=== PATIENT | female | born 1975 | race African-American/Black ===

== ENCOUNTER 2020-10-06 13:26 | Inpatient (IN) | payer OTHER ==
[2020-10-06 15:24] VITALS: BMI 21.4
[2020-10-06] MEDS ORDERED: IBUPROFEN 400 MG TABLET (FP) PO PRN (18:16)
[2020-10-06] MEDS ORDERED: BISMUTH SUBSALICYLATE 524 MG/30 ML PO PRN (18:16)
[2020-10-06] MEDS ORDERED: cloNIDine HCL 0.1 MG TABLET PO PRN (18:16)
[2020-10-06] MEDS ORDERED: MENTHOL/PHENOL 1 EACH UD MM PRN (18:16)
[2020-10-06] MEDS ORDERED: MAG HYDROX/AL HYDROX/SIMETH 30 ML UNIT-DOSE CUP PO PRN (18:16)
[2020-10-06] MEDS ORDERED: METHADONE HCL 10 MG TABLET (FOR DETOX USE ONLY) PO ONE (18:16)
[2020-10-06] MEDS ORDERED: MAGNESIUM CITRATE 300 ML BOTTLE PO PRN (18:16)
[2020-10-06] MEDS ORDERED: ONDANSETRON *ODT* 4 MG TABLET SL PRN (18:16)
[2020-10-06] MEDS ORDERED: MAGNESIUM HYDROX 2400MG/30ML ORAL SUSPENSION 30 ML CUP PO PRN (18:16)
[2020-10-06] MEDS ORDERED: ACETAMINOPHEN 325 MG TABLET (FP) PO PRN (18:16)
[2020-10-06] MEDS ORDERED: NICOTINE POLACRILEX 2 MG GUM BUC PRN (18:16)
[2020-10-06] MEDS ORDERED: METHADONE HCL 10 MG TABLET (FOR DETOX USE ONLY) ONE (22:48)
[2020-10-06] MEDS: NICOTINE 21 MG/24 HOURS TOPICAL PATCH TD SCH (22:50)
[2020-10-06] MEDS: PRENATAL VITAMINS W/ FOLIC ACID TABLET (FP) PO SCH (22:50)
[2020-10-06] MEDS: MELATONIN 5 MG TABLETS PO SCH (22:50)
[2020-10-06] MEDS: hydrOXYzine PAMOATE 25 MG CAPSULE (FP) PO SCH (22:51)
[2020-10-06] MEDS: THIAMINE HCL 100 MG TABLET (FP) PO SCH (22:51)
[2020-10-07] MEDS: hydrOXYzine PAMOATE 25 MG CAPSULE (FP) PO SCH ×5 (06:07→23:05)
[2020-10-07] MEDS ORDERED: METHADONE HCL 10 MG TABLET (FOR DETOX USE ONLY) ONE (09:25)
[2020-10-07] MEDS ORDERED: METHADONE HCL 5 MG TABLET (FOR DETOX USE ONLY) ONE (09:25)
[2020-10-07] MEDS ORDERED: METHADONE (DETOX) 20 MG, METHADONE (DETOX) 5 MG PO ONE (10:00)
[2020-10-07] MEDS: ACETAMINOPHEN 325 MG TABLET (FP) PO PRN (10:02)
[2020-10-07] MEDS: NICOTINE 21 MG/24 HOURS TOPICAL PATCH TD SCH (10:04)
[2020-10-07] MEDS: PRENATAL VITAMINS W/ FOLIC ACID TABLET (FP) PO SCH (10:04)
[2020-10-07] MEDS: METHOCARBAMOL 500 MG TABLET PO PRN (10:27)
[2020-10-07] MEDS ORDERED: PNEUMOC 13-VAL CONJ-DIP CRM/PF 0.5 ML DISP.SYRIN IM ONE (12:00)
[2020-10-07] MEDS ORDERED: FLU VACCINE (FLULAVAL) PF 60 MCG/0.5 ML SYRINGE 2020-2021 IM ONE (12:00)
[2020-10-07] MEDS ORDERED: PNEUMOCOCCAL 23 VACCINE 0.5 ML VIAL IM ONE (12:00)
[2020-10-07 12:03] LABS: HEMATOCRIT 37.9 % (32.4-45.2); HEMOGLOBIN 12.9 GM/dL (10.7-15.3); MCH 31.8 pg (25.7-33.7); MEAN CELL VOLUME 93.6 fl (80-96); MEAN PLT VOLUME 9.5 fl (7.5-11.1); PLATELET COUNT 248 K/MM3 (134-434); RBC 4.05 M/mm3 (3.60-5.2); RDW 14.3 % (11.6-15.6); WHITE BLOOD COUNT 5.5 K/mm3 (4.0-10.0)
[2020-10-07 12:40] LABS: ALBUMIN 2.9 g/dl (3.4-5.0); BLOOD UREA NITROGEN 15.1 mg/dL (7-18)
[2020-10-07 12:42] LABS: BILIRUBIN,TOTAL 0.3 mg/dL (0.2-1); CALCIUM 8.6 mg/dL (8.5-10.1); TOT PROT 6.4 g/dl (6.4-8.2)
[2020-10-07 12:43] LABS: CREATININE 0.9 mg/dL (0.55-1.3)
[2020-10-07] MEDS: THIAMINE HCL 100 MG TABLET (FP) PO SCH (23:05)
[2020-10-07] MEDS: MELATONIN 5 MG TABLETS PO SCH (23:05)
[2020-10-08] MEDS: hydrOXYzine PAMOATE 25 MG CAPSULE (FP) PO SCH ×5 (05:48→22:29)
[2020-10-08] MEDS ORDERED: METHADONE HCL 10 MG TABLET (FOR DETOX USE ONLY) PO ONE (10:00)
[2020-10-08] MEDS: PRENATAL VITAMINS W/ FOLIC ACID TABLET (FP) PO SCH (10:35)
[2020-10-08] MEDS: NICOTINE 21 MG/24 HOURS TOPICAL PATCH TD SCH (10:37)
[2020-10-08] MEDS: THIAMINE HCL 100 MG TABLET (FP) PO SCH (22:29)
[2020-10-08] MEDS: MELATONIN 5 MG TABLETS PO SCH (22:29)
[2020-10-09] MEDS: hydrOXYzine PAMOATE 25 MG CAPSULE (FP) PO SCH ×5 (05:09→22:31)
[2020-10-09] MEDS ORDERED: METHADONE HCL 10 MG TABLET (FOR DETOX USE ONLY) ONE (09:00)
[2020-10-09] MEDS ORDERED: METHADONE HCL 5 MG TABLET (FOR DETOX USE ONLY) ONE (09:01)
[2020-10-09] MEDS ORDERED: METHADONE (DETOX) 10 MG, METHADONE (DETOX) 5 MG PO ONE (10:00)
[2020-10-09] MEDS: NICOTINE 21 MG/24 HOURS TOPICAL PATCH TD SCH (10:25)
[2020-10-09] MEDS: PRENATAL VITAMINS W/ FOLIC ACID TABLET (FP) PO SCH (10:26)
[2020-10-09] MEDS: THIAMINE HCL 100 MG TABLET (FP) PO SCH (22:31)
[2020-10-09] MEDS: MELATONIN 5 MG TABLETS PO SCH (22:31)
[2020-10-10] MEDS: hydrOXYzine PAMOATE 25 MG CAPSULE (FP) PO SCH ×4 (07:26→22:33)
[2020-10-10] MEDS: PRENATAL VITAMINS W/ FOLIC ACID TABLET (FP) PO SCH (09:27)
[2020-10-10] MEDS: NICOTINE 21 MG/24 HOURS TOPICAL PATCH TD SCH (09:28)
[2020-10-10] MEDS: METHOCARBAMOL 500 MG TABLET PO PRN ×2 (09:29→22:33)
[2020-10-10] MEDS ORDERED: METHADONE HCL 10 MG TABLET (FOR DETOX USE ONLY) PO ONE (10:00)
[2020-10-10] MEDS: MELATONIN 5 MG TABLETS PO SCH (22:33)
[2020-10-10] MEDS: THIAMINE HCL 100 MG TABLET (FP) PO SCH (22:33)
[2020-10-11] MEDS ORDERED: METHADONE HCL 5 MG TABLET (FOR DETOX USE ONLY) PO ONE (06:00)
[2020-10-11] MEDS: hydrOXYzine PAMOATE 25 MG CAPSULE (FP) PO SCH ×2 (06:04→09:11)
[2020-10-11] MEDS: ACETAMINOPHEN 325 MG TABLET (FP) PO PRN (06:05)
[2020-10-11 09:08] VITALS: BP 121/82; PULSE 68; TEMP 97.6
[2020-10-11] MEDS: PRENATAL VITAMINS W/ FOLIC ACID TABLET (FP) PO SCH (09:11)
[2020-10-11] MEDS: NICOTINE 21 MG/24 HOURS TOPICAL PATCH TD SCH (09:11)
== END 2020-10-11 10:13 | disposition other institution (70) | DRG 773 ==
LOC: YASAS 13:26 → Y3N 20:09
PROVIDERS: ADMIT Allergy & Immunology; ATTEND Allergy & Immunology
PROC: HZ2ZZZZ Detoxification Services for Substance Abuse Treatment (ICD-10-PCS; principal; 2020-10-06)
DX: F11.23 Opioid dependence with withdrawal (principal); F10.20 Alcohol dependence, uncomplicated; F14.20 Cocaine dependence, uncomplicated; F16.20 Hallucinogen dependence, uncomplicated; F17.210 Nicotine dependence, cigarettes, uncomplicated; F31.9 Bipolar disorder, unspecified; F43.10 Post-traumatic stress disorder, unspecified; I10 Essential (primary) hypertension; E89.0 Postprocedural hypothyroidism; Z62.810 Personal history of physical and sexual abuse in childhood; Z91.5 Personal history of self-harm; Z91.018 Allergy to other foods
CPT/HCPCS: 36415; 80053; 81025; 85027; 86780; 90732; C9803; G0008; G0009; Q2036; U0003

== ENCOUNTER 2022-04-10 19:19 | Observation (INO) | payer OTHER ==
[2022-04-10 19:30] VITALS: BMI 22.3
[2022-04-10] MEDS ORDERED: ACETAMINOPHEN 1000 MG/100 ML BAG IVPB ONE (19:44)
[2022-04-10 20:28] LABS: BASO % 0.7 % (0-2.0); EOS % 2.9 % (0-4.5); LYMPH % 41.1 % (8-40); MCH 31.7 pg (25.7-33.7); MCHC 34.3 g/dl (32.0-36.0); MEAN CELL VOLUME 92.4 fl (80-96); MEAN PLT VOLUME 8.2 fl (7.5-11.1); MONO % 8.3 % (3.8-10.2); PLATELET COUNT 243 10^3/uL (134-434); RBC 4.12 M/mm3 (3.60-5.2); RDW 13.9 % (11.6-15.6); WHITE BLOOD COUNT 5.1 K/mm3 (4.0-10.0)
[2022-04-10] MEDS ORDERED: ONDANSETRON *ODT* 4 MG TABLET SL ONE (20:46)
[2022-04-10 20:54] LABS: CHLORIDE 108 mmol/L (98-107); SODIUM 143 mmol/L (136-145)
[2022-04-10 20:57] LABS: ALBUMIN 3.2 g/dl (3.4-5.0); ANION GAP 5 MMOL/L (8-16); BLOOD UREA NITROGEN 21.3 mg/dL (7-18); CALCIUM 8.7 mg/dL (8.5-10.1); CO2 30 mmol/L (21-32); GLUCOSE,RANDOM 136 mg/dL (74-106); LIPASE 91 U/L (73-393)
[2022-04-10 21:00] LABS: CREATININE 0.9 mg/dL (0.55-1.3); SGOT/AST 21 U/L (15-37); SGPT/ALT 21 U/L (13-61)
[2022-04-10 21:02] LABS: BILIRUBIN,TOTAL 0.2 mg/dL (0.2-1); TOT PROT 7.2 g/dl (6.4-8.2)
[2022-04-10 21:04] LABS: ALK PHOS 58 U/L (45-117)
[2022-04-10] MEDS ORDERED: ACETAMINOPHEN INJECTION 100 ML IVPB ONE (21:56)
[2022-04-11] MEDS ORDERED: BISACODYL 5 MG TABLET.DR (FP) PO ONE (07:29)
[2022-04-11] MEDS ORDERED: ENOXAPARIN NA (PORCINE) 40 MG/0.4 ML DISP.SYRIN SQ SCH (10:00)
[2022-04-11] MEDS ORDERED: POLYETHYLENE GLYCOL (HEALTHYLAX) 3350 17 GM PACKET PO SCH (10:00)
[2022-04-11] MEDS ORDERED: ENOXAPARIN NA (PORCINE) 40 MG/0.4 ML DISP.SYRIN SQ ONE (10:34)
[2022-04-11] MEDS ORDERED: POLYETHYLENE GLYCOL (HEALTHYLAX) 3350 17 GM PACKET ONE (10:34)
[2022-04-11] MEDS ORDERED: methaDONE HCL 10 MG TABLET PO ONE (12:14)
[2022-04-11] MEDS ORDERED: cloNIDine HCL 0.1 MG TABLET PO PRN (12:14)
[2022-04-11] MEDS ORDERED: methaDONE HCL 10 MG TABLET ONE (14:37)
[2022-04-11 17:04] VITALS: BP 121/81; PULSE 61; RESP 20; TEMP 97.6
[2022-04-13] MEDS ORDERED: methaDONE HCL 10 MG TABLET PO ONE (10:00)
[2022-04-15] MEDS ORDERED: methaDONE HCL 10 MG TABLET PO ONE (10:00)
== END 2022-04-11 17:38 | disposition other institution (70) ==
LOC: JER 19:19 → JERBED 23:11 → UNDODISOB 04-11 16:56 → J4W 04-12 05:13 → JERBED 04-12 05:13
PROVIDERS: ADMIT Internal Medicine; ATTEND Nurse Practitioner Acute Care
PROC: 3E033NZ Introduction of Analgesics, Hypnotics, Sedatives into Peripheral Vein, Percutaneous Approach (ICD-10-PCS; principal; 2022-04-10)
PROC: 3E023GC Introduction of Other Therapeutic Substance into Muscle, Percutaneous Approach (ICD-10-PCS; 2022-04-10)
DX: T40.1X4A Poisoning by heroin, undetermined, initial encounter (principal); F19.10 Other psychoactive substance abuse, uncomplicated; I95.9 Hypotension, unspecified; F14.10 Cocaine abuse, uncomplicated; Z91.018 Allergy to other foods
CPT/HCPCS: 36415; 71045-TC-FY; 74177-TC; 80053; 80307; 83605; 83690; 84484; 84703; 85025; 93005; 93010; 96374; 96375; 99285-25; C9803-CS; G0378; Q9967; U0003; U0005

== ENCOUNTER 2022-04-11 17:28 | Inpatient (IN) | payer OTHER ==
[2022-04-11 18:06] VITALS: BMI 21.4
[2022-04-11] MEDS ORDERED: P-EPHED 60MG/TRIPROLIDI 2.5MG TABLET PO PRN (18:53)
[2022-04-11] MEDS ORDERED: MAGNESIUM CITRATE 300 ML BOTTLE PO PRN (18:53)
[2022-04-11] MEDS ORDERED: MAGNESIUM HYDROX 2400MG/30ML ORAL SUSPENSION 30 ML CUP PO PRN (18:53)
[2022-04-11] MEDS ORDERED: NALOXONE HCL (KLOXXADO) 8 MG SPRAY NS PRN (18:53)
[2022-04-11] MEDS ORDERED: BISMUTH SUBSALICYLATE 524 MG/30 ML PO PRN (18:53)
[2022-04-11] MEDS ORDERED: BENZOCAINE/MENTHOL (CHLORASEPTIC ) LOZENGE MM PRN (18:53)
[2022-04-11] MEDS ORDERED: METHOCARBAMOL 500 MG TABLET PO PRN (18:53)
[2022-04-11] MEDS ORDERED: MAG HYDROX/AL HYDROX/SIMETH 30 ML UNIT-DOSE CUP PO PRN (18:53)
[2022-04-11] MEDS ORDERED: ACETAMINOPHEN 325 MG TABLET (FP) PO PRN (18:53)
[2022-04-11] MEDS ORDERED: DICYCLOMINE HCL 10 MG CAPSULE PO PRN (18:53)
[2022-04-11] MEDS ORDERED: guaiFENesin 200 MG/10 ML 10 ML UNIT-DOSE CUPS PO PRN (18:53)
[2022-04-11] MEDS ORDERED: LOPERAMIDE HCL 2 MG CAPSULE PO PRN (18:53)
[2022-04-11] MEDS ORDERED: ONDANSETRON *ODT* 4 MG TABLET SL PRN (18:53)
[2022-04-11] MEDS ORDERED: cloNIDine HCL 0.1 MG TABLET PO PRN (18:56)
[2022-04-11] MEDS: THIAMINE HCL 100 MG TABLET (FP) PO SCH (22:09)
[2022-04-12] MEDS ORDERED: methaDONE HCL 10 MG TABLET PO ONE (11:26)
[2022-04-12] MEDS: PRENATAL VITAMINS W/ FOLIC ACID TABLET (FP) PO SCH (11:55)
[2022-04-12] MEDS: ACETAMINOPHEN 325 MG TABLET (FP) PO PRN (21:55)
[2022-04-12] MEDS: THIAMINE HCL 100 MG TABLET (FP) PO SCH (22:11)
[2022-04-13] MEDS: methaDONE HCL 10 MG TABLET PO SCH (07:03)
[2022-04-13] MEDS ORDERED: methaDONE HCL 10 MG TABLET (FOR DETOX USE ONLY) PO ONE (10:00)
[2022-04-13] MEDS: PRENATAL VITAMINS W/ FOLIC ACID TABLET (FP) PO SCH (10:33)
[2022-04-13] MEDS: ACETAMINOPHEN 325 MG TABLET (FP) PO PRN (10:34)
[2022-04-13] MEDS ORDERED: cloNIDine HCL 0.1 MG TABLET PO PRN (11:59)
[2022-04-13] MEDS: hydrOXYzine PAMOATE 25 MG CAPSULE (FP) PO PRN (21:16)
[2022-04-13] MEDS: THIAMINE HCL 100 MG TABLET (FP) PO SCH (21:16)
[2022-04-13] MEDS: MELATONIN 5 MG TABLETS PO PRN (21:17)
[2022-04-14] MEDS: methaDONE HCL 10 MG TABLET PO SCH (07:04)
[2022-04-14] MEDS: PRENATAL VITAMINS W/ FOLIC ACID TABLET (FP) PO SCH (10:29)
[2022-04-14] MEDS: hydrOXYzine PAMOATE 25 MG CAPSULE (FP) PO PRN (21:33)
[2022-04-14] MEDS: THIAMINE HCL 100 MG TABLET (FP) PO SCH (21:33)
[2022-04-15] MEDS: methaDONE HCL 10 MG TABLET PO SCH (07:09)
[2022-04-15] MEDS ORDERED: methaDONE HCL 10 MG TABLET (FOR DETOX USE ONLY) PO ONE (10:00)
[2022-04-15] MEDS: PRENATAL VITAMINS W/ FOLIC ACID TABLET (FP) PO SCH (10:50)
[2022-04-15] MEDS: ACETAMINOPHEN 325 MG TABLET (FP) PO PRN (10:51)
[2022-04-15] MEDS: MELATONIN 5 MG TABLETS PO PRN (21:22)
[2022-04-15] MEDS: hydrOXYzine PAMOATE 25 MG CAPSULE (FP) PO PRN (21:22)
[2022-04-15] MEDS: THIAMINE HCL 100 MG TABLET (FP) PO SCH (21:23)
[2022-04-16] MEDS: methaDONE HCL 10 MG TABLET PO SCH (07:16)
[2022-04-16] MEDS: PRENATAL VITAMINS W/ FOLIC ACID TABLET (FP) PO SCH (10:31)
[2022-04-16] MEDS: hydrOXYzine PAMOATE 25 MG CAPSULE (FP) PO PRN (10:31)
[2022-04-16] MEDS: THIAMINE HCL 100 MG TABLET (FP) PO SCH (21:41)
[2022-04-16] MEDS: MELATONIN 5 MG TABLETS PO PRN (21:41)
[2022-04-17] MEDS: methaDONE HCL 10 MG TABLET PO SCH (07:06)
[2022-04-17] MEDS: PRENATAL VITAMINS W/ FOLIC ACID TABLET (FP) PO SCH (10:35)
[2022-04-17] MEDS: MELATONIN 5 MG TABLETS PO PRN (21:18)
[2022-04-17] MEDS: THIAMINE HCL 100 MG TABLET (FP) PO SCH (21:18)
[2022-04-18] MEDS: methaDONE HCL 10 MG TABLET PO SCH (06:43)
[2022-04-18] MEDS: PRENATAL VITAMINS W/ FOLIC ACID TABLET (FP) PO SCH (10:45)
[2022-04-18] MEDS: ACETAMINOPHEN 325 MG TABLET (FP) PO PRN (10:46)
[2022-04-18] MEDS: MELATONIN 5 MG TABLETS PO PRN (22:10)
[2022-04-18] MEDS: THIAMINE HCL 100 MG TABLET (FP) PO SCH (22:10)
[2022-04-19] MEDS: methaDONE HCL 10 MG TABLET PO SCH (06:57)
[2022-04-19] MEDS: IBUPROFEN 400 MG TABLET (FP) PO PRN (10:54)
[2022-04-19] MEDS: PRENATAL VITAMINS W/ FOLIC ACID TABLET (FP) PO SCH (10:54)
[2022-04-19] MEDS ORDERED: valACYclovir HCL 1000 MG TABLET PO ONE (13:32)
[2022-04-19] MEDS ORDERED: valACYclovir HCL 500 MG TABLET (FP) PO ONE (13:45)
[2022-04-19] MEDS: BENZOCAINE 20 % GEL TUBE MM SCH ×2 (14:22→23:03)
[2022-04-19] MEDS: MELATONIN 5 MG TABLETS PO PRN (21:37)
[2022-04-19] MEDS: THIAMINE HCL 100 MG TABLET (FP) PO SCH (21:37)
[2022-04-20] MEDS: valACYclovir HCL 500 MG TABLET (FP) PO SCH ×3 (00:07→21:28)
[2022-04-20] MEDS: BENZOCAINE 20 % GEL TUBE MM SCH ×4 (06:31→19:07)
[2022-04-20] MEDS: methaDONE HCL 10 MG TABLET PO SCH (06:53)
[2022-04-20] MEDS: PRENATAL VITAMINS W/ FOLIC ACID TABLET (FP) PO SCH (11:19)
[2022-04-20] MEDS: METHOCARBAMOL 500 MG TABLET PO PRN ×2 (11:22→21:26)
[2022-04-20] MEDS: THIAMINE HCL 100 MG TABLET (FP) PO SCH (21:26)
[2022-04-20] MEDS: MELATONIN 5 MG TABLETS PO PRN (21:27)
[2022-04-21] MEDS: BENZOCAINE 20 % GEL TUBE MM SCH ×4 (02:24→19:35)
[2022-04-21] MEDS ORDERED: diphenhydrAMINE HCL 25 MG CAPSULE (FP) PO ONE (02:25)
[2022-04-21] MEDS: methaDONE HCL 10 MG TABLET PO SCH (07:02)
[2022-04-21] MEDS: PRENATAL VITAMINS W/ FOLIC ACID TABLET (FP) PO SCH (10:52)
[2022-04-21] MEDS: valACYclovir HCL 500 MG TABLET (FP) PO SCH ×2 (10:52→22:04)
[2022-04-21] MEDS: IBUPROFEN 400 MG TABLET (FP) PO PRN (10:54)
[2022-04-21] MEDS: THIAMINE HCL 100 MG TABLET (FP) PO SCH (22:03)
[2022-04-21] MEDS: MELATONIN 5 MG TABLETS PO PRN (22:04)
[2022-04-21] MEDS: ERYTHROMYCIN 0.5% OPHTHALMIC OINTMENT 3.5 GM TUBE OS SCH (22:05)
[2022-04-22] MEDS: BENZOCAINE 20 % GEL TUBE MM SCH ×4 (01:52→21:37)
[2022-04-22] MEDS: methaDONE HCL 10 MG TABLET PO SCH (07:05)
[2022-04-22] MEDS: PRENATAL VITAMINS W/ FOLIC ACID TABLET (FP) PO SCH (10:44)
[2022-04-22] MEDS: valACYclovir HCL 500 MG TABLET (FP) PO SCH ×2 (10:45→22:13)
[2022-04-22] MEDS: IBUPROFEN 400 MG TABLET (FP) PO PRN (10:45)
[2022-04-22] MEDS: ERYTHROMYCIN 0.5% OPHTHALMIC OINTMENT 3.5 GM TUBE OS SCH ×2 (10:47→22:14)
[2022-04-22] MEDS: THIAMINE HCL 100 MG TABLET (FP) PO SCH (22:13)
[2022-04-22] MEDS: MELATONIN 5 MG TABLETS PO PRN (22:13)
[2022-04-23] MEDS: BENZOCAINE 20 % GEL TUBE MM SCH ×4 (01:53→20:19)
[2022-04-23] MEDS: methaDONE HCL 10 MG TABLET PO SCH (06:59)
[2022-04-23] MEDS: IBUPROFEN 600 MG TABLET (FP) PO PRN (11:09)
[2022-04-23] MEDS: PRENATAL VITAMINS W/ FOLIC ACID TABLET (FP) PO SCH (11:09)
[2022-04-23] MEDS: valACYclovir HCL 500 MG TABLET (FP) PO SCH ×2 (12:53→21:41)
[2022-04-23] MEDS: THIAMINE HCL 100 MG TABLET (FP) PO SCH (21:39)
[2022-04-23] MEDS: ERYTHROMYCIN 0.5% OPHTHALMIC OINTMENT 3.5 GM TUBE OS SCH ×2 (22:09→22:43)
[2022-04-24] MEDS: BENZOCAINE 20 % GEL TUBE MM SCH ×4 (06:04→19:45)
[2022-04-24] MEDS: methaDONE HCL 10 MG TABLET PO SCH (06:52)
[2022-04-24] MEDS: PRENATAL VITAMINS W/ FOLIC ACID TABLET (FP) PO SCH (10:32)
[2022-04-24] MEDS: valACYclovir HCL 500 MG TABLET (FP) PO SCH ×2 (10:32→21:29)
[2022-04-24] MEDS: IBUPROFEN 600 MG TABLET (FP) PO PRN (10:33)
[2022-04-24] MEDS: ERYTHROMYCIN 0.5% OPHTHALMIC OINTMENT 3.5 GM TUBE OS SCH ×4 (10:35→23:13)
[2022-04-24] MEDS: NICOTINE 10 MG CARTRIDGE (INHALER) IH PRN (16:52)
[2022-04-24] MEDS: THIAMINE HCL 100 MG TABLET (FP) PO SCH (21:29)
[2022-04-25] MEDS: methaDONE HCL 10 MG TABLET PO SCH (07:11)
[2022-04-25] MEDS: BENZOCAINE 20 % GEL TUBE MM SCH ×5 (07:12→20:13)
[2022-04-25] MEDS: PRENATAL VITAMINS W/ FOLIC ACID TABLET (FP) PO SCH (10:29)
[2022-04-25] MEDS: IBUPROFEN 600 MG TABLET (FP) PO PRN (10:30)
[2022-04-25] MEDS: valACYclovir HCL 500 MG TABLET (FP) PO SCH ×2 (10:30→21:26)
[2022-04-25] MEDS: ERYTHROMYCIN 0.5% OPHTHALMIC OINTMENT 3.5 GM TUBE OS SCH ×4 (10:32→22:42)
[2022-04-25] MEDS: THIAMINE HCL 100 MG TABLET (FP) PO SCH (21:24)
[2022-04-25] MEDS: METHOCARBAMOL 500 MG TABLET PO PRN (21:25)
[2022-04-26] MEDS: BENZOCAINE 20 % GEL TUBE MM SCH ×4 (02:24→22:00)
[2022-04-26] MEDS: methaDONE HCL 10 MG TABLET PO SCH (07:01)
[2022-04-26] MEDS: PRENATAL VITAMINS W/ FOLIC ACID TABLET (FP) PO SCH (10:37)
[2022-04-26] MEDS: ERYTHROMYCIN 0.5% OPHTHALMIC OINTMENT 3.5 GM TUBE OS SCH ×4 (10:38→22:00)
[2022-04-26] MEDS: valACYclovir HCL 500 MG TABLET (FP) PO SCH (10:39)
[2022-04-26] MEDS ORDERED: TUBERCULIN PPD 5 TU/0.1ML VIAL ID ONE (17:21)
[2022-04-26] MEDS: THIAMINE HCL 100 MG TABLET (FP) PO SCH (21:59)
[2022-04-26] MEDS: SULFAMETHOXAZOLE/TRIMETHOPRIM 800MG/160MG D.S. TABLET PO SCH (21:59)
[2022-04-26] MEDS: MELATONIN 5 MG TABLETS PO PRN (22:01)
[2022-04-27] MEDS: BENZOCAINE 20 % GEL TUBE MM SCH ×5 (07:05→19:06)
[2022-04-27] MEDS: methaDONE HCL 10 MG TABLET PO SCH (07:11)
[2022-04-27] MEDS: PRENATAL VITAMINS W/ FOLIC ACID TABLET (FP) PO SCH (10:39)
[2022-04-27] MEDS: ERYTHROMYCIN 0.5% OPHTHALMIC OINTMENT 3.5 GM TUBE OS SCH ×4 (10:40→22:11)
[2022-04-27] MEDS: SULFAMETHOXAZOLE/TRIMETHOPRIM 800MG/160MG D.S. TABLET PO SCH ×2 (10:40→21:21)
[2022-04-27] MEDS: THIAMINE HCL 100 MG TABLET (FP) PO SCH (21:21)
[2022-04-28] MEDS: BENZOCAINE 20 % GEL TUBE MM SCH ×4 (02:16→19:45)
[2022-04-28] MEDS: methaDONE HCL 10 MG TABLET PO SCH (06:52)
[2022-04-28] MEDS: PRENATAL VITAMINS W/ FOLIC ACID TABLET (FP) PO SCH (09:58)
[2022-04-28] MEDS: SULFAMETHOXAZOLE/TRIMETHOPRIM 800MG/160MG D.S. TABLET PO SCH ×2 (09:59→21:52)
[2022-04-28] MEDS: ERYTHROMYCIN 0.5% OPHTHALMIC OINTMENT 3.5 GM TUBE OS SCH ×4 (10:00→21:52)
[2022-04-28] MEDS: THIAMINE HCL 100 MG TABLET (FP) PO SCH (21:52)
[2022-04-28] MEDS: MELATONIN 5 MG TABLETS PO PRN (21:53)
[2022-04-29] MEDS: BENZOCAINE 20 % GEL TUBE MM SCH ×4 (06:53→22:04)
[2022-04-29] MEDS: methaDONE HCL 10 MG TABLET PO SCH (06:54)
[2022-04-29] MEDS: PRENATAL VITAMINS W/ FOLIC ACID TABLET (FP) PO SCH (10:20)
[2022-04-29] MEDS: SULFAMETHOXAZOLE/TRIMETHOPRIM 800MG/160MG D.S. TABLET PO SCH ×2 (10:20→22:03)
[2022-04-29] MEDS: ERYTHROMYCIN 0.5% OPHTHALMIC OINTMENT 3.5 GM TUBE OS SCH ×4 (10:21→22:04)
[2022-04-29] MEDS: THIAMINE HCL 100 MG TABLET (FP) PO SCH (22:04)
[2022-04-30] MEDS: BENZOCAINE 20 % GEL TUBE MM SCH ×4 (02:07→19:45)
[2022-04-30] MEDS: methaDONE HCL 10 MG TABLET PO SCH (06:52)
[2022-04-30] MEDS: SULFAMETHOXAZOLE/TRIMETHOPRIM 800MG/160MG D.S. TABLET PO SCH ×2 (10:28→21:52)
[2022-04-30] MEDS: ERYTHROMYCIN 0.5% OPHTHALMIC OINTMENT 3.5 GM TUBE OS SCH ×4 (10:28→21:52)
[2022-04-30] MEDS: PRENATAL VITAMINS W/ FOLIC ACID TABLET (FP) PO SCH (10:28)
[2022-04-30] MEDS: THIAMINE HCL 100 MG TABLET (FP) PO SCH (21:52)
[2022-04-30] MEDS: MELATONIN 5 MG TABLETS PO PRN (21:53)
[2022-04-30] MEDS: IBUPROFEN 400 MG TABLET (FP) PO PRN (21:54)
[2022-05-01] MEDS: methaDONE HCL 10 MG TABLET PO SCH (06:52)
[2022-05-01] MEDS: BENZOCAINE 20 % GEL TUBE MM SCH ×4 (06:52→23:14)
[2022-05-01] MEDS: ERYTHROMYCIN 0.5% OPHTHALMIC OINTMENT 3.5 GM TUBE OS SCH ×4 (10:50→23:15)
[2022-05-01] MEDS: PRENATAL VITAMINS W/ FOLIC ACID TABLET (FP) PO SCH (10:50)
[2022-05-01] MEDS: SULFAMETHOXAZOLE/TRIMETHOPRIM 800MG/160MG D.S. TABLET PO SCH ×2 (10:50→23:14)
[2022-05-01] MEDS: THIAMINE HCL 100 MG TABLET (FP) PO SCH (23:15)
[2022-05-02] MEDS: BENZOCAINE 20 % GEL TUBE MM SCH ×4 (01:40→17:45)
[2022-05-02] MEDS: methaDONE HCL 10 MG TABLET PO SCH (06:49)
[2022-05-02] MEDS: PRENATAL VITAMINS W/ FOLIC ACID TABLET (FP) PO SCH (10:00)
[2022-05-02] MEDS: SULFAMETHOXAZOLE/TRIMETHOPRIM 800MG/160MG D.S. TABLET PO SCH ×2 (10:01→22:05)
[2022-05-02] MEDS: ERYTHROMYCIN 0.5% OPHTHALMIC OINTMENT 3.5 GM TUBE OS SCH ×4 (10:02→22:06)
[2022-05-02] MEDS: THIAMINE HCL 100 MG TABLET (FP) PO SCH (22:05)
[2022-05-03] MEDS: BENZOCAINE 20 % GEL TUBE MM SCH ×4 (02:55→19:26)
[2022-05-03] MEDS: methaDONE HCL 10 MG TABLET PO SCH (07:15)
[2022-05-03] MEDS: PRENATAL VITAMINS W/ FOLIC ACID TABLET (FP) PO SCH (11:01)
[2022-05-03] MEDS: SULFAMETHOXAZOLE/TRIMETHOPRIM 800MG/160MG D.S. TABLET PO SCH ×2 (11:01→21:29)
[2022-05-03] MEDS: ERYTHROMYCIN 0.5% OPHTHALMIC OINTMENT 3.5 GM TUBE OS SCH ×4 (11:02→21:30)
[2022-05-03] MEDS: THIAMINE HCL 100 MG TABLET (FP) PO SCH (21:29)
[2022-05-03] MEDS: MELATONIN 5 MG TABLETS PO PRN (21:29)
[2022-05-04] MEDS: methaDONE HCL 10 MG TABLET PO SCH (08:08)
[2022-05-04] MEDS: BENZOCAINE 20 % GEL TUBE MM SCH ×3 (08:09→19:02)
[2022-05-04] MEDS: PRENATAL VITAMINS W/ FOLIC ACID TABLET (FP) PO SCH (10:52)
[2022-05-04] MEDS: ERYTHROMYCIN 0.5% OPHTHALMIC OINTMENT 3.5 GM TUBE OS SCH ×4 (10:52→21:31)
[2022-05-04] MEDS: MELATONIN 5 MG TABLETS PO PRN (21:30)
[2022-05-04] MEDS: THIAMINE HCL 100 MG TABLET (FP) PO SCH (21:30)
[2022-05-05] MEDS: BENZOCAINE 20 % GEL TUBE MM SCH ×4 (01:40→20:03)
[2022-05-05] MEDS: methaDONE HCL 10 MG TABLET PO SCH (07:33)
[2022-05-05] MEDS: PRENATAL VITAMINS W/ FOLIC ACID TABLET (FP) PO SCH (10:32)
[2022-05-05] MEDS: ERYTHROMYCIN 0.5% OPHTHALMIC OINTMENT 3.5 GM TUBE OS SCH ×4 (10:33→22:11)
[2022-05-05] MEDS: MELATONIN 5 MG TABLETS PO PRN (22:09)
[2022-05-05] MEDS: THIAMINE HCL 100 MG TABLET (FP) PO SCH (22:10)
[2022-05-06] MEDS: BENZOCAINE 20 % GEL TUBE MM SCH ×4 (01:45→20:18)
[2022-05-06] MEDS: methaDONE HCL 10 MG TABLET PO SCH (06:58)
[2022-05-06] MEDS: ERYTHROMYCIN 0.5% OPHTHALMIC OINTMENT 3.5 GM TUBE OS SCH ×4 (10:05→23:05)
[2022-05-06] MEDS: PRENATAL VITAMINS W/ FOLIC ACID TABLET (FP) PO SCH (10:05)
[2022-05-06] MEDS: ACETAMINOPHEN 325 MG TABLET (FP) PO PRN (10:06)
[2022-05-06] MEDS: THIAMINE HCL 100 MG TABLET (FP) PO SCH (22:00)
[2022-05-06] MEDS: MELATONIN 5 MG TABLETS PO PRN (22:00)
[2022-05-06] MEDS: METHOCARBAMOL 500 MG TABLET PO PRN (22:01)
[2022-05-07] MEDS: BENZOCAINE 20 % GEL TUBE MM SCH ×4 (02:45→21:46)
[2022-05-07] MEDS: methaDONE HCL 10 MG TABLET PO SCH (06:21)
[2022-05-07] MEDS: ACETAMINOPHEN 325 MG TABLET (FP) PO PRN (10:43)
[2022-05-07] MEDS: PRENATAL VITAMINS W/ FOLIC ACID TABLET (FP) PO SCH (10:43)
[2022-05-07] MEDS: ERYTHROMYCIN 0.5% OPHTHALMIC OINTMENT 3.5 GM TUBE OS SCH ×4 (10:45→21:47)
[2022-05-07] MEDS: THIAMINE HCL 100 MG TABLET (FP) PO SCH (21:44)
[2022-05-07] MEDS: MELATONIN 5 MG TABLETS PO PRN (21:45)
[2022-05-08] MEDS: BENZOCAINE 20 % GEL TUBE MM SCH ×4 (01:50→21:50)
[2022-05-08] MEDS: methaDONE HCL 10 MG TABLET PO SCH (07:07)
[2022-05-08 08:17] VITALS: RESP 18
[2022-05-08] MEDS: PRENATAL VITAMINS W/ FOLIC ACID TABLET (FP) PO SCH (10:41)
[2022-05-08] MEDS: ERYTHROMYCIN 0.5% OPHTHALMIC OINTMENT 3.5 GM TUBE OS SCH ×4 (10:42→21:45)
[2022-05-08] MEDS: MELATONIN 5 MG TABLETS PO PRN (21:44)
[2022-05-08] MEDS: THIAMINE HCL 100 MG TABLET (FP) PO SCH (21:44)
[2022-05-09] MEDS ORDERED: BENZOCAINE 20 % GEL TUBE MM SCH (01:35)
[2022-05-09] MEDS: methaDONE HCL 10 MG TABLET PO SCH (06:18)
[2022-05-09 07:26] VITALS: BP 131/75; PULSE 73; TEMP 97.1
[2022-05-09] MEDS: PRENATAL VITAMINS W/ FOLIC ACID TABLET (FP) PO SCH (09:40)
[2022-05-09] MEDS: ERYTHROMYCIN 0.5% OPHTHALMIC OINTMENT 3.5 GM TUBE OS SCH (09:41)
[2022-05-09] MEDS: NICOTINE 10 MG CARTRIDGE (INHALER) IH PRN (10:26)
== END 2022-05-09 09:55 | disposition home or self-care (01) | DRG 773 ==
LOC: YASAS 17:28 → Y6N 18:54 → Y5N 19:45
PROVIDERS: ADMIT Allergy & Immunology; ATTEND Psychiatry & Neurology Psychiatry
PROC: HZ2ZZZZ Detoxification Services for Substance Abuse Treatment (ICD-10-PCS; principal; 2022-04-12)
DX: F11.20 Opioid dependence, uncomplicated (principal); F14.20 Cocaine dependence, uncomplicated; F10.20 Alcohol dependence, uncomplicated; F16.20 Hallucinogen dependence, uncomplicated; F12.20 Cannabis dependence, uncomplicated; F17.210 Nicotine dependence, cigarettes, uncomplicated; I10 Essential (primary) hypertension; E05.90 Thyrotoxicosis, unspecified without thyrotoxic crisis or storm; H00.015 Hordeolum externum left lower eyelid
CPT/HCPCS: 36415; 81025; 84443; 86780

== ENCOUNTER 2022-04-23 16:10 | Emergency (ER) | payer OTHER ==
[2022-04-23 16:26] VITALS: BP 125/73; PULSE 71; RESP 18; TEMP 98; BMI 22.3
[2022-04-23] MEDS ORDERED: FLUORESCEIN NA 1 EA STRIP OU ONE (16:46)
[2022-04-23] MEDS ORDERED: TETRACAINE 0.5% HCL 0.6ML DROPPER.BOTTLE OU ONE (16:46)
[2022-04-23] MEDS ORDERED: FLUORESCEIN NA 1 EA STRIP ONE (16:52)
== END 2022-04-23 17:43 | disposition short-term general hospital (02) ==
LOC: JERFT 16:10
DX: H00.015 Hordeolum externum left lower eyelid (principal)
CPT/HCPCS: 99283-25

== ENCOUNTER 2022-09-23 10:57 | Inpatient (IN) | payer OTHER ==
[2022-09-23 11:44] VITALS: BMI 23.9
[2022-09-23] MEDS ORDERED: LOPERAMIDE HCL 2 MG CAPSULE PO PRN (15:51)
[2022-09-23] MEDS ORDERED: DICYCLOMINE HCL 10 MG CAPSULE PO PRN (15:51)
[2022-09-23] MEDS ORDERED: ONDANSETRON *ODT* 4 MG TABLET SL PRN (15:51)
[2022-09-23] MEDS ORDERED: MAG HYDROX/AL HYDROX/SIMETH 30 ML UNIT-DOSE CUP PO PRN (15:51)
[2022-09-23] MEDS ORDERED: IBUPROFEN 600 MG TABLET (FP) PO PRN (15:51)
[2022-09-23] MEDS ORDERED: BISMUTH SUBSALICYLATE 524 MG/30 ML PO PRN (15:51)
[2022-09-23] MEDS ORDERED: NICOTINE 10 MG CARTRIDGE (INHALER) IH PRN (15:51)
[2022-09-23] MEDS ORDERED: IBUPROFEN 400 MG TABLET (FP) PO PRN (15:51)
[2022-09-23] MEDS ORDERED: hydrOXYzine PAMOATE 25 MG CAPSULE (FP) PO PRN (15:51)
[2022-09-23] MEDS ORDERED: MAGNESIUM HYDROX 2400MG/30ML ORAL SUSPENSION 30 ML CUP PO PRN (15:51)
[2022-09-23] MEDS ORDERED: NICOTINE POLACRILEX 2 MG GUM BUC PRN (15:51)
[2022-09-23] MEDS ORDERED: ACETAMINOPHEN 325 MG TABLET (FP) PO PRN ×2 (15:51)
[2022-09-23] MEDS ORDERED: BENZOCAINE/MENTHOL (CHLORASEPTIC ) LOZENGE MM PRN (15:51)
[2022-09-23] MEDS ORDERED: NALOXONE HCL (KLOXXADO) 8 MG SPRAY NS PRN (15:51)
[2022-09-23] MEDS ORDERED: POLYETHYLENE GLYCOL (HEALTHYLAX) 3350 17 GM PACKET PO PRN (15:51)
[2022-09-23] MEDS: THIAMINE HCL 100 MG TABLET (FP) PO SCH (22:36)
[2022-09-23] MEDS: MELATONIN 5 MG TABLETS PO SCH (22:36)
[2022-09-24] MEDS ORDERED: cloNIDine HCL 0.1 MG TABLET PO PRN (10:17)
[2022-09-24] MEDS ORDERED: chlordiazePOXIDE HCL 25 MG CAPSULE PO PRN (10:17)
[2022-09-24] MEDS ORDERED: methaDONE HCL 10 MG TABLET (FOR DETOX USE ONLY) PO ONE (10:30)
[2022-09-24] MEDS: chlordiazePOXIDE HCL 25 MG CAPSULE PO SCH ×3 (10:37→22:44)
[2022-09-24] MEDS: PRENATAL VITAMINS W/ FOLIC ACID TABLET (FP) PO SCH (10:37)
[2022-09-24] MEDS: METHOCARBAMOL 500 MG TABLET PO PRN (10:38)
[2022-09-24 12:29] LABS: HEMATOCRIT 45.9 % (32.4-45.2); HEMOGLOBIN 15.4 GM/dL (10.7-15.3); MCHC 33.5 g/dl (32.0-36.0); MEAN CELL VOLUME 89.4 fl (80-96); MEAN PLT VOLUME 9.3 fl (7.5-11.1); PLATELET COUNT 266 10^3/uL (134-434); RBC 5.14 M/mm3 (3.60-5.2); RDW 13.7 % (11.6-15.6)
[2022-09-24 13:44] LABS: CALCIUM 9.3 mg/dL (8.5-10.1)
[2022-09-24 13:46] LABS: ALBUMIN 3.6 g/dl (3.4-5.0); BLOOD UREA NITROGEN 9.9 mg/dL (7-18); CREATININE 0.7 mg/dL (0.55-1.3)
[2022-09-24 13:48] LABS: TOT PROT 8.2 g/dl (6.4-8.2)
[2022-09-24 13:52] LABS: BILIRUBIN,TOTAL 0.7 mg/dL (0.2-1)
[2022-09-24] MEDS: THIAMINE HCL 100 MG TABLET (FP) PO SCH (22:44)
[2022-09-24] MEDS: MELATONIN 5 MG TABLETS PO SCH (22:44)
[2022-09-25] MEDS: chlordiazePOXIDE HCL 25 MG CAPSULE PO SCH ×4 (05:51→22:31)
[2022-09-25] MEDS: PRENATAL VITAMINS W/ FOLIC ACID TABLET (FP) PO SCH (10:24)
[2022-09-25] MEDS: THIAMINE HCL 100 MG TABLET (FP) PO SCH (22:31)
[2022-09-25] MEDS: MELATONIN 5 MG TABLETS PO SCH (22:31)
[2022-09-26] MEDS: chlordiazePOXIDE HCL 25 MG CAPSULE PO SCH ×4 (05:54→22:23)
[2022-09-26] MEDS ORDERED: methaDONE HCL 10 MG TABLET (FOR DETOX USE ONLY) PO ONE (10:00)
[2022-09-26] MEDS: PRENATAL VITAMINS W/ FOLIC ACID TABLET (FP) PO SCH (10:32)
[2022-09-26] MEDS: MELATONIN 5 MG TABLETS PO SCH (22:23)
[2022-09-26] MEDS: THIAMINE HCL 100 MG TABLET (FP) PO SCH (22:23)
[2022-09-27] MEDS ORDERED: chlordiazePOXIDE HCL 10 MG CAPSULE PO PRN
[2022-09-27] MEDS: chlordiazePOXIDE HCL 10 MG CAPSULE PO SCH ×4 (05:48→22:23)
[2022-09-27] MEDS: PRENATAL VITAMINS W/ FOLIC ACID TABLET (FP) PO SCH (10:35)
[2022-09-27] MEDS: METHOCARBAMOL 500 MG TABLET PO PRN (10:35)
[2022-09-27] MEDS: THIAMINE HCL 100 MG TABLET (FP) PO SCH (22:22)
[2022-09-27] MEDS: MELATONIN 5 MG TABLETS PO SCH (22:22)
[2022-09-28] MEDS: chlordiazePOXIDE HCL 10 MG CAPSULE PO SCH ×2 (05:58→17:37)
[2022-09-28] MEDS ORDERED: methaDONE HCL 10 MG TABLET (FOR DETOX USE ONLY) PO ONE (10:00)
[2022-09-28] MEDS: METHOCARBAMOL 500 MG TABLET PO PRN (10:40)
[2022-09-28] MEDS: PRENATAL VITAMINS W/ FOLIC ACID TABLET (FP) PO SCH (10:40)
[2022-09-28] MEDS: THIAMINE HCL 100 MG TABLET (FP) PO SCH (22:22)
[2022-09-28] MEDS: MELATONIN 5 MG TABLETS PO SCH (22:22)
[2022-09-29] MEDS ORDERED: chlordiazePOXIDE HCL 10 MG CAPSULE PO ONE (05:00)
[2022-09-29 06:11] VITALS: BP 136/81; PULSE 74; RESP 16; TEMP 97.1
[2022-09-29] MEDS: PRENATAL VITAMINS W/ FOLIC ACID TABLET (FP) PO SCH (10:37)
== END 2022-09-29 12:30 | disposition other institution (70) | DRG 773 ==
LOC: YASAS 10:57 → Y3N 16:37
PROVIDERS: ADMIT Allergy & Immunology; ATTEND Surgery
PROC: HZ2ZZZZ Detoxification Services for Substance Abuse Treatment (ICD-10-PCS; principal; 2022-09-23)
DX: F11.23 Opioid dependence with withdrawal (principal); F10.230 Alcohol dependence with withdrawal, uncomplicated; F14.20 Cocaine dependence, uncomplicated; F16.20 Hallucinogen dependence, uncomplicated; F17.210 Nicotine dependence, cigarettes, uncomplicated; F31.32 Bipolar disorder, current episode depressed, moderate; I10 Essential (primary) hypertension; E03.9 Hypothyroidism, unspecified; E89.0 Postprocedural hypothyroidism; Z62.810 Personal history of physical and sexual abuse in childhood; Z56.0 Unemployment, unspecified; Z59.00 Homelessness unspecified
CPT/HCPCS: 36415; 80053; 85027; 86780; C9803-CS; U0003; U0005

== ENCOUNTER 2022-11-26 20:46 | Inpatient (IN) | payer OTHER ==
[2022-11-26 21:13] VITALS: BMI 21.6
[2022-11-26] MEDS ORDERED: hydrOXYzine PAMOATE 25 MG CAPSULE (FP) PO PRN (21:41)
[2022-11-26] MEDS ORDERED: P-EPHED 60MG/TRIPROLIDI 2.5MG TABLET PO PRN (21:41)
[2022-11-26] MEDS ORDERED: BENZOCAINE/MENTHOL (CHLORASEPTIC ) LOZENGE MM PRN (21:41)
[2022-11-26] MEDS ORDERED: METHOCARBAMOL 500 MG TABLET PO PRN (21:41)
[2022-11-26] MEDS ORDERED: MELATONIN 5 MG TABLETS PO PRN (21:41)
[2022-11-26] MEDS ORDERED: BISMUTH SUBSALICYLATE 524 MG/30 ML PO PRN (21:41)
[2022-11-26] MEDS ORDERED: guaiFENesin 600 MG TABLET.ER (FP) PO PRN (21:41)
[2022-11-26] MEDS ORDERED: DICYCLOMINE HCL 10 MG CAPSULE PO PRN (21:41)
[2022-11-26] MEDS ORDERED: LOPERAMIDE HCL 2 MG CAPSULE PO PRN (21:41)
[2022-11-26] MEDS ORDERED: NALOXONE HCL (KLOXXADO) 8 MG SPRAY NS PRN (21:41)
[2022-11-26] MEDS ORDERED: IBUPROFEN 400 MG TABLET (FP) PO PRN (21:41)
[2022-11-26] MEDS ORDERED: BENZONATATE 200 MG CAPSULE PO PRN (21:41)
[2022-11-26] MEDS ORDERED: MAG HYDROX/AL HYDROX/SIMETH 30 ML UNIT-DOSE CUP PO PRN (21:41)
[2022-11-26] MEDS ORDERED: IBUPROFEN 600 MG TABLET (FP) PO PRN (21:41)
[2022-11-26] MEDS ORDERED: POLYETHYLENE GLYCOL (HEALTHYLAX) 3350 17 GM PACKET PO PRN (21:41)
[2022-11-26] MEDS ORDERED: ONDANSETRON *ODT* 4 MG TABLET SL PRN (21:41)
[2022-11-26] MEDS ORDERED: ACETAMINOPHEN 325 MG TABLET (FP) PO PRN (21:41)
[2022-11-26] MEDS ORDERED: MAGNESIUM HYDROX 2400MG/30ML ORAL SUSPENSION 30 ML CUP PO PRN (21:41)
[2022-11-26] MEDS ORDERED: NICOTINE POLACRILEX 2 MG GUM BUC PRN (21:41)
[2022-11-26] MEDS ORDERED: NALOXONE HCL 0.4 MG/ML VIAL IM PRN (21:41)
[2022-11-26] MEDS: THIAMINE HCL 100 MG TABLET (FP) PO SCH (22:33)
[2022-11-27] MEDS: PRENATAL VITAMINS W/ FOLIC ACID TABLET (FP) PO SCH (10:16)
[2022-11-27 12:30] LABS: HEMATOCRIT 38.5 % (32.4-45.2); HEMOGLOBIN 13.6 GM/dL (10.7-15.3); MCH 31.9 pg (25.7-33.7); MCHC 35.2 g/dl (32.0-36.0); MEAN CELL VOLUME 90.5 fl (80-96); MEAN PLT VOLUME 9.1 fl (7.5-11.1); PLATELET COUNT 264 10^3/uL (134-434); RBC 4.26 M/mm3 (3.60-5.2); RDW 13.4 % (11.6-15.6); WHITE BLOOD COUNT 4.8 K/mm3 (4.0-10.0)
[2022-11-27 12:41] LABS: POTASSIUM 3.9 mmol/L (3.5-5.1)
[2022-11-27 13:00] LABS: ALBUMIN 3.1 g/dl (3.4-5.0); CALCIUM 8.7 mg/dL (8.5-10.1)
[2022-11-27 13:01] LABS: BLOOD UREA NITROGEN 26.8 mg/dL (7-18)
[2022-11-27 13:02] LABS: CREATININE 0.9 mg/dL (0.55-1.3)
[2022-11-27 13:05] LABS: BILIRUBIN,TOTAL 0.2 mg/dL (0.2-1); TOT PROT 6.8 g/dl (6.4-8.2)
[2022-11-27] MEDS: THIAMINE HCL 100 MG TABLET (FP) PO SCH (23:22)
[2022-11-28] MEDS: PRENATAL VITAMINS W/ FOLIC ACID TABLET (FP) PO SCH (10:38)
[2022-11-28 12:44] VITALS: BP 121/71; PULSE 86; RESP 18; TEMP 97.7
== END 2022-11-28 02:45 | disposition home or self-care (01) | DRG 773 ==
LOC: YASAS 20:46 → Y3N 21:48
PROVIDERS: ADMIT Allergy & Immunology; ATTEND Allergy & Immunology
PROC: HZ2ZZZZ Detoxification Services for Substance Abuse Treatment (ICD-10-PCS; principal; 2022-11-26)
DX: F11.20 Opioid dependence, uncomplicated (principal); F14.20 Cocaine dependence, uncomplicated; F17.210 Nicotine dependence, cigarettes, uncomplicated; F31.9 Bipolar disorder, unspecified; F20.1 Disorganized schizophrenia
CPT/HCPCS: 36415; 80053; 81025; 85027; 86780; 87811; C9803-CS; U0003; U0005

== ENCOUNTER 2023-08-20 19:50 | Inpatient (IN) | payer OTHER ==
[2023-08-20 20:25] VITALS: BMI 21.6
[2023-08-20] MEDS ORDERED: NALOXONE HCL 0.4 MG/ML VIAL IM PRN (22:56)
[2023-08-20] MEDS ORDERED: ONDANSETRON *ODT* 4 MG TABLET SL PRN (22:56)
[2023-08-20] MEDS ORDERED: BISMUTH SUBSALICYLATE 524 MG/30 ML PO PRN (22:56)
[2023-08-20] MEDS ORDERED: POLYETHYLENE GLYCOL (HEALTHYLAX) 3350 17 GM PACKET PO PRN (22:56)
[2023-08-20] MEDS ORDERED: MAG HYDROX/AL HYDROX/SIMETH 30 ML UNIT-DOSE CUP PO PRN (22:56)
[2023-08-20] MEDS ORDERED: BENZONATATE 200 MG CAPSULE PO PRN (22:56)
[2023-08-20] MEDS ORDERED: IBUPROFEN 400 MG TABLET (FP) PO PRN (22:56)
[2023-08-20] MEDS ORDERED: LOPERAMIDE HCL 2 MG CAPSULE PO PRN (22:56)
[2023-08-20] MEDS ORDERED: IBUPROFEN 600 MG TABLET (FP) PO PRN (22:56)
[2023-08-20] MEDS ORDERED: ACETAMINOPHEN 325 MG TABLET (FP) PO PRN (22:56)
[2023-08-20] MEDS ORDERED: BENZOCAINE/MENTHOL (CHLORASEPTIC ) LOZENGE MM PRN (22:56)
[2023-08-20] MEDS ORDERED: MAGNESIUM HYDROX 2400MG/30ML ORAL SUSPENSION 30 ML CUP PO PRN (22:56)
[2023-08-20] MEDS ORDERED: guaiFENesin 600 MG TABLET.ER (FP) PO PRN (22:56)
[2023-08-20] MEDS ORDERED: DICYCLOMINE HCL 10 MG CAPSULE PO PRN (22:56)
[2023-08-20] MEDS ORDERED: NALOXONE HCL (KLOXXADO) 8 MG SPRAY NS PRN (22:56)
[2023-08-20] MEDS ORDERED: NICOTINE POLACRILEX 2 MG LOZENGE BC PRN (22:56)
[2023-08-21 10:03] LABS: HEMATOCRIT 37.8 % (32.4-45.2); HEMOGLOBIN 13.1 GM/dL (10.7-15.3); MCH 31.4 pg (25.7-33.7); MCHC 34.6 g/dl (32.0-36.0); MEAN CELL VOLUME 90.7 fl (80-96); PLATELET COUNT 298 10^3/uL (134-434); RBC 4.17 M/mm3 (3.60-5.2); RDW 14.3 % (11.6-15.6); WHITE BLOOD COUNT 5.4 K/mm3 (4.0-10.0)
[2023-08-21 10:13] LABS: CHLORIDE 104 mmol/L (98-107); POTASSIUM 4.2 mmol/L (3.5-5.1); SODIUM 139 mmol/L (136-145)
[2023-08-21 10:15] LABS: CALCIUM 8.8 mg/dL (8.5-10.1); GLUCOSE,RANDOM 97 mg/dL (74-106)
[2023-08-21 10:16] LABS: ANION GAP 3 mmol/L (4-13); BLOOD UREA NITROGEN 30.5 mg/dL (7-18); CO2 32 mmol/L (21-32)
[2023-08-21 10:19] LABS: CREATININE 0.9 mg/dL (0.55-1.3); SGOT/AST 29 U/L (15-37); SGPT/ALT 36 U/L (13-61)
[2023-08-21 10:20] LABS: BILIRUBIN,TOTAL 0.2 mg/dL (0.2-1)
[2023-08-21 10:21] LABS: TOT PROT 7.4 g/dl (6.4-8.2)
[2023-08-21 10:24] LABS: ALK PHOS 75 U/L (45-117)
[2023-08-21] MEDS: PRENATAL VITAMINS W/ FOLIC ACID TABLET (FP) PO SCH (10:27)
[2023-08-21] MEDS: NICOTINE 21 MG/24 HOURS TOPICAL PATCH TD SCH (10:27)
[2023-08-21] MEDS ORDERED: BUPRENORPHINE HCL 150 MCG, BUPRENORPHINE HCL 75 MCG BC PRN (11:19)
[2023-08-21] MEDS ORDERED: BUPRENORPHINE HCL 150 MCG, BUPRENORPHINE HCL 75 MCG BC ONE (11:19)
[2023-08-21] MEDS ORDERED: diazePAM 5 MG TABLET PO PRN (11:23)
[2023-08-21 16:47] LABS: HIV INTERPRETATION NEGATIVE (NEGATIVE)
[2023-08-21] MEDS ORDERED: THIAMINE HCL 100 MG TABLET (FP) PO SCH (22:00)
[2023-08-21] MEDS ORDERED: MELATONIN 5 MG TABLETS PO SCH (22:00)
[2023-08-22] MEDS ORDERED: BUPRENORPHINE HCL 150 MCG, BUPRENORPHINE HCL 75 MCG BC PRN
[2023-08-22] MEDS ORDERED: BUPRENORPHINE HCL 150 MCG, BUPRENORPHINE HCL 75 MCG BC SCH (06:00)
[2023-08-22] MEDS: NICOTINE 21 MG/24 HOURS TOPICAL PATCH TD SCH (09:21)
[2023-08-22] MEDS: PRENATAL VITAMINS W/ FOLIC ACID TABLET (FP) PO SCH (09:21)
[2023-08-22 09:46] VITALS: RESP 20
[2023-08-22 13:08] VITALS: BP 138/89; PULSE 96; TEMP 98
[2023-08-22] MEDS ORDERED: diazePAM 5 MG TABLET PO PRN (13:31)
[2023-08-22] MEDS ORDERED: methaDONE HCL 10 MG TABLET (FOR DETOX USE ONLY) PO ONE (14:00)
[2023-08-23] MEDS ORDERED: BUPRENORPHINE HCL 450 MCG FILM BC PRN
[2023-08-23] MEDS ORDERED: BUPRENORPHINE HCL 450 MCG FILM BC SCH (06:00)
[2023-08-24] MEDS ORDERED: BUPRENORPHINE/NALOXONE 4 MG/1 MG FILM PACKET SL SCH (06:00)
[2023-08-24] MEDS ORDERED: methaDONE HCL 10 MG TABLET (FOR DETOX USE ONLY) PO ONE (10:00)
[2023-08-25] MEDS ORDERED: BUPRENORPHINE/NALOXONE 8 MG/2 MG FILM PACKET SL ONE (06:00)
== END 2023-08-22 14:32 | disposition left against medical advice (07) | DRG 770 ==
LOC: YASAS 19:50 → Y6N 22:56
PROVIDERS: ADMIT Allergy & Immunology; ATTEND Allergy & Immunology
PROC: HZ2ZZZZ Detoxification Services for Substance Abuse Treatment (ICD-10-PCS; principal; 2023-08-20)
DX: F11.23 Opioid dependence with withdrawal (principal); F14.10 Cocaine abuse, uncomplicated; F10.10 Alcohol abuse, uncomplicated; F16.10 Hallucinogen abuse, uncomplicated; F17.210 Nicotine dependence, cigarettes, uncomplicated; I10 Essential (primary) hypertension; Z91.51 Personal history of suicidal behavior; Z86.59 Personal history of other mental and behavioral disorders; Z62.810 Personal history of physical and sexual abuse in childhood; Z63.8 Other specified problems related to primary support group; Z56.0 Unemployment, unspecified; Z59.02 Unsheltered homelessness
CPT/HCPCS: 0241U-QW; 36415; 80053; 80307; 85027; 86780; 87389; 87811; 93005; 93010